=== PATIENT | female | born 1995 | race Caucasian/White ===

== ENCOUNTER 2020-11-18 13:54 | Observation (INO) | payer OTHER ==
[~2020-11-18] VITALS: Ht 172.7 cm; Wt 92.3 kg
[2020-11-18] VITALS (10 sets, daily range): BP systolic 116–137; BP diastolic 60–80
[2020-11-18] MEDS ORDERED: PRENTAB9 PO (14:40)
[2020-11-18] MEDS ORDERED: OMEP1CAP73 PO (14:44)
[2020-11-18] MEDS ORDERED: CYCL-707 PO (14:44)
[2020-11-18] MEDS ORDERED: ACET325C5 PO (14:48)
[2020-11-18] MEDS ORDERED: ACET25TA12 PO (14:50)
[2020-11-18] MEDS ORDERED: BUTORPHANOL 2 MG/ML INJ (J0595) IV ONE (15:00)
[2020-11-18] MEDS ORDERED: PROMETHAZINE INJ 25 MG/ML VIAL (J2550) IV ONE (15:00)
[2020-11-18] MEDS ORDERED: LR 1,000 ML IV ONE (15:00)
[2020-11-18 15:05] LABS: HEMATOCRIT 37.5 % (36.0-47.0); HEMOGLOBIN 12.8 g/dl (12.0-15.5); MEAN CORPUSCULAR HEMOGLOBIN 30.6 pg (27.0-33.0); MEAN CORPUSCULAR HGB CONC 34.1 g/dl (32.0-36.5); MEAN CORPUSCULAR VOLUME 89.7 fl (80.0-96.0); PLATELET COUNT, AUTOMATED 235 10^3/uL (150-450); RED BLOOD COUNT 4.18 10^6/uL (4.00-5.40); WHITE BLOOD COUNT 14.1 10^3/uL (4.0-10.0)
[2020-11-18 15:41] LABS: APPEARANCE, URINE CLEAR (CLEAR); BACTERIA, URINE AUTO 1+ (NEGATIVE); BILIRUBIN, URINE AUTO NEGATIVE (NEGATIVE); BLOOD, URINE BLOOD 1+ (NEGATIVE); COLOR, URINE YELLOW (YELLOW); GLUCOSE, URINE (UA) AUTO NEGATIVE (NEGATIVE); KETONE, URINE AUTO 1+ mg/dL (NEGATIVE); LEUKOCYTE ESTERASE, URINE AUTO 2+ (NEGATIVE); NITRITE, URINE AUTO NEGATIVE (NEGATIVE); PROTEIN, URINE AUTO NEGATIVE (NEGATIVE); RBC, URINE AUTO 1 /HPF (0-3); SPECIFIC GRAVITY URINE AUTO 1.008 (1.002-1.035); SQUAMOUS EPITHELIAL CELL UR AU 0 /HPF (0-6); UROBILINOGEN, URINE AUTO 0.2 mg/dL (0.0-2.0); WBC, URINE AUTO 3 /HPF (0-3)
[2020-11-18] MEDS: LR 1,000 ML IV SCH (16:09)
--- NOTE | 2020-11-18 16:40 | REP ---
INDICATION: severe right back pain with +CVAT, afebrile. COMPARISON: None. TECHNIQUE: Urinary tract sonography. FINDINGS: Scanning at the level of the urinary bladder shows no abnormality. Renal cortical echogenicity pattern is normal bilaterally and contours are smooth. There is no evidence of cyst, mass, or calculus in either kidney. The right kidney measures 15.0 x 7.5 x 5.8 cm. Left renal dimensions are 15.4 x 5.8 x 5.8 cm. There is moderate right sided hydronephrosis and hydroureter. No left-sided hydronephrosis seen. heart rate is recorded during the exam at 126 beats per minute in this patient with history 36 weeks gestation. IMPRESSION: Moderate right-sided hydronephrosis and hydroureter seen. No calculus is observed. No hydronephrosis on the left. Otherwise negative.. <Electronically signed by Cipriano Lazo > 11/18/20 [id number]
[2020-11-18] MEDS ORDERED: ACETAMINOPHEN 325 MG TAB PO ONE (19:00)
--- NOTE | 2020-11-18 19:01 | HPEPDOC ---
Obstetrical History & Physical General Date of Admission History of Present Illness C/o right side back pain starting at 0800, with irregular contractions Chief Complaint: Other Information Provided By: Patient Age: 25 : 1 Term: 0 Pre-term: 0 Abortions: 0 Livin Care Care: Good Care Dating Final EDC: Dec 12, 2020 Final EDC for Daily Update: Nov 11, 2020 Final EDC by: LMP LMP: March 07, 2020 EGA at Admission: 36 (+4) Antepartum Course Diagnos(e)s low lying placenta, anxiety, varicella NI Height (inches): 68 Pre- weight (lbs.): 185 Admission Weight (lbs.): 202 Change in Weight (lbs.): 17 Past Medical History Past Obstetrical History : Past Obstetrical History: Primgravida Complications: Yes (low lying placenta) 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 WELDER History: Abnormal Pap (ASCUS, HPV-) Past Medical History Medical History migraines, anxiety Surgical History: Denies/None Family History Significant Family History: Heart disease (father), Hypertension (mother, father) Social History Marital Status: Family situation: Spouse/partner home Psychosocial History: Anxiety * Smoker: non-smoker Alcohol: Denies Drugs: denies Abuse Violence Screening Have you been hit/kicked/slapp: No Have you been sexually assault: No Imunizations Tdap status: current Influenza Status: current Allergies Coded Allergies: No Known Allergies (Unverified , 11/18/20) Medications Scheduled Omeprazole (Omeprazole) 20 Mg Capsule.dr, 1 CAP PO DAILY No.137/Iron/Folic Acd ( Vitamin Tablet) 1 Each Tablet, 1 TAB PO DAILY Scheduled PRN Acetaminophen (Tylenol) 325 Mg Capsule, 325 MG PO Q6HP PRN for DISCOMFORT Acetaminophen/Diphenhydramine (Acetaminophen Pm Caplet) 1 Each Tablet, 1 TAB PO QHSP PRN for SLEEP Cyclobenzaprine HCl (Cyclobenzaprine HCl) 10 Mg Tablet, 1 TAB PO TIDP PRN for DISCOMFORT Physical Examination Physical Examination GENERAL: Alert and oriented times three. BREAST: . ABDOMEN: Gravid and non-tender to touch. FETUS: Is vertex (VTX) by sterile vaginal examination (SVE), fetus is vertex (VTX) by Dennis. HEART RATE: Regular rate and rhythm. LUNGS: Clear to auscultation (CTA). EXTREMITIES: No edema. No clonus. +CVAT, afrebrile, renal U/S indicates right hydronephrosis Vital Signs/I&O Vital Signs Date Time Temp Pulse Resp B/P (MAP) Pulse Ox O2 Delivery O2 Flow Rate FiO2 11/18/20 17:51 77 20 133/77 (95) 11/18/20 17:46 98.3 11/18/20 14:17 98 Room Air Laboratory Data 24H LABS Laboratory Tests 2 11/18/20 14:50: Nucleated Red Blood Cells % (auto) 0.0 11/18/20 15:28: Urine Color YELLOW, Urine Appearance CLEAR, Urine pH 7.0, Urine Specific [place] 1.008, Urine Protein NEGATIVE, Urine Glucose (Auto)(UA) NEGATIVE, Urine Ketones (Auto) 1+H, Urine Blood 1+H, Urine Nitrite NEGATIVE, Urine Bilirubin NEGATIVE, Urine Urobilinogen 0.2, Urine Leukocyte Esterase (Auto) 2+H, Urine WBC (Auto) 3, Urine RBC (Auto) 1, Urine Hyaline Casts (Auto) 0, Urine Bacteria (Auto) 1+H, Urine Squamous Epithelial Cells 0, Urine Sperm (Auto) CBC/BMP Laboratory Tests 11/18/20 14:50 Pertinent Laboratoy Data Blood Type: A+ RBC Antibody Screen: Negative HIV: Negative Hepatitis B: Negative Rapid Plasma Reagin: Nonreactive Rubella: Immune Varicella: Nonreactive Chlamydia/Gonorrhea: Negative Group B Streptococcus: Negative Quad Screen Test: Negative Cystic Fibrosis: Negative Anatomy Ultrasound Placenta Location: Posterior (lowlying) Normal Anatomy: Yes Placenta Previa: No (low lying 1.63 cm a 32wks gestation) Steroid Therapy Steroid Therapy: No Vaginal Examination Dilation: 1cm Station: -3 Cervical Position: Posterior Presentation: Cephalic presentation Assessment Variability: Moderate Accelerations: Positive Decelerations: None Tocometer Contractions: Yes Frequency: irregular Duration: less than 60 seconds Strength: palpated as mild, resting tone palp/soft Multi-drug resistant Organism: No history of MDRO Assessment/Plan Assessment Edyta is a 25-year-old (G)1 para (P)0 at 36+4 weeks by 11+0-week ultrasound. Presents to Labor and Delivery (L&D) for c/o right back pain. Plan Admit and orient. Diet: regular as tolerated. Group B Streptococcus (GBS) [negative]. Labs and intravenous (IV) per unit protocol. Counseled on pain management and NST q shift. Lactated Ringers (LR): Bolus 1000 mL, then at 125 mL/hr. stadol, tylenol ordered prn pain phenergan prn nausea flomax q day Monitor for change in status LO CORMIER CNM Nov 18, 2020 19:01
[2020-11-18] MEDS: BUTORPHANOL 2 MG/ML INJ (J0595) IV PRN ×2 (19:28→23:30)
[2020-11-18] MEDS: TAMSULOSIN 0.4 MG CAP PO SCH (20:57)
[2020-11-18] MEDS: PROMETHAZINE INJ 25 MG/ML VIAL (J2550) IV PRN (22:58)
[2020-11-19] VITALS (21 sets, daily range): BP systolic 104–141; BP diastolic 56–82
[2020-11-19] MEDS: LR 1,000 ML IV SCH ×3 (03:24→13:35)
[2020-11-19] MEDS: BUTORPHANOL 2 MG/ML INJ (J0595) IV PRN ×3 (03:31→12:41)
[2020-11-19] MEDS ORDERED: ONDANSETRON 4MG/2ML VIAL IV ONE (04:15)
[2020-11-19 05:59] LABS: HEMATOCRIT 36.6 % (36.0-47.0); HEMOGLOBIN 12.2 g/dl (12.0-15.5); MEAN CORPUSCULAR HEMOGLOBIN 30.6 pg (27.0-33.0); MEAN CORPUSCULAR HGB CONC 33.3 g/dl (32.0-36.5); MEAN CORPUSCULAR VOLUME 91.7 fl (80.0-96.0); PLATELET COUNT, AUTOMATED 275 10^3/uL (150-450); RED BLOOD COUNT 3.99 10^6/uL (4.00-5.40); WHITE BLOOD COUNT 18.1 10^3/uL (4.0-10.0)
[2020-11-19 06:09] LABS: INR 1.04; PROTHROMBIN TIME 13.8 SECONDS (12.5-14.3)
[2020-11-19 06:10] LABS: PARTIAL THROMBOPLASTIN TIME 28.7 SECONDS (24.2-38.5)
--- NOTE | 2020-11-19 06:22 | REPVR ---
PROCEDURE INFORMATION: Exam: US , Limited Exam date and time: 11/19/2020 5:44 AM Age: 25 years old Clinical indication: Lmp or gestational age (in weeks): 36w 5d; Other: Low lying placenta on prior ultrasounds; ; Additional info: Placental location TECHNIQUE: Imaging protocol: Real-time ultrasound of the maternal uterus with image documentation. Exam focused on the clinical indication. COMPARISON: RENAL US 11/18/2020 5:21 PM FINDINGS: Gestation: Single live IUP is seen . heart rate: heart rate is detected at 142 beats per minutes. Presentation: Cephalic presentation is noted. Placenta: Posterior grade 2 placenta is noted with no retroplacental hemorrhage or abruption. The placenta is approximately 2.6 cm distant from the internal os. Amniotic fluid index: The amniotic fluid index is within normal limits at 15.4 cm. ANATOMICAL SURVEY: anatomy: Limited evaluation of the abdominal wall, stomach, right and left kidneys and urinary bladder appear unremarkable. DOPPLER: Umbilical artery Doppler: Low resistance flow seen in the umbilical artery with peak systolic velocity of 58.9 centimeter/second, SD ratio of 2 and resistive index of 0.49. MATERNAL: Cervix: The cervix is normal length measuring 3.9 cm. The endocervical canal is closed. There is no funneling. IMPRESSION: 1. No sonographic evidence of placenta previa. 2. Normal length cervix with closed endocervical canal and no evidence of funneling. Electronically signed by: Eric Mccartney On 11/19/2020 06:22:00 AM
[2020-11-19 06:27] LABS: ALBUMIN 2.7 GM/DL (3.2-5.2); ALT/SGPT 10 U/L (12-78); BILIRUBIN,TOTAL 0.5 MG/DL (0.2-1.0); BLOOD UREA NITROGEN 5 MG/DL (7-18); CALCIUM LEVEL 8.8 MG/DL (8.5-10.1); CARBON DIOXIDE LEVEL 24 MEQ/L (21-32); CHLORIDE LEVEL 106 MEQ/L (98-107); CREATININE FOR GFR 0.71 MG/DL (0.55-1.30); GLOMERULAR FILTRATION RATE > 60.0 (>60); GLUCOSE, FASTING 86 MG/DL (70-100); POTASSIUM SERUM 3.9 MEQ/L (3.5-5.1); SODIUM LEVEL 139 MEQ/L (136-145); TOTAL PROTEIN 6.6 GM/DL (6.4-8.2)
[2020-11-19] MEDS: PROMETHAZINE INJ 25 MG/ML VIAL (J2550) IV PRN ×2 (06:33→13:30)
[2020-11-19] MEDS: TAMSULOSIN 0.4 MG CAP PO SCH (08:26)
[2020-11-19] MEDS: cefTRIAXone SOD 1 GM in D5W MINI-BAG PLUS 50 ML IV SCH (09:24)
--- NOTE | 2020-11-19 09:41 | IPNPDOC ---
Text Note Date of Service The patient was seen on 11/19/20. NOTE Patient seen and examined this AM. Edyta is a 25 yo at 36+5 weeks gestation who was admitted yesterday afternoon for severe right flank pain radiating to the groin with concern of nephrolithiasis vs pyelonephritis. She described a 12 hour history of severe back pain (especially on the right side) radiating to the groin on that same side. She also endorsed intermittent contractions. She denied any fevers or vomiting. Admission CBC was notable for WBC of ~14. UA was notable for a 2+ leuk est, 1+ blood, negative nitrite, 1+ bacteria. This morning, CMP and coags were unremarkable, to include a fibrinogen level >500. Repeat CBC demonstrated stable H/H and WBC of 18. She had a formal US earlier this morning which revealed a normal REMA and no sonographic evidence of placental abruption. Internal cervical os appeared closed. Placenta was known to be low-lying, however this AMs US demonstrated the placental tip being 2.6cm away from the cervical os. Due to her severe pain, she has been receiving 2mg stadol Q4H along with tylenol. This morning she reports continued pain, especially in the lower back on the right side. She denies any severe abdominal pain. However she does endorse some contraction pain. She had an episode of emesis last night, though this may have been due to the IV stadol. She endorses feeling hungry. Chaperoned by RN Vitals - VSS, afebrile (tmax 99.7 on skin scan, however repeat PO temp was 97.4 shortly thereafter), non tachycardic, normotensive General - Sitting up in bed, NAD Abdomen - Gravid uterus. No fundal tenderness whatsoever. Back - Tenderness to palpation at CVA on right side. Also tenderness to palpation in middle of lower back at lumbosacral junction. Pain somewhat able to be distractable. Cervix - 50/-4. Posterior. Unchanged from admission exam yesterday FHR tracing - Cat I throughout stay with moderate variability, +accels, no decels. Ctx irregular, but at times Q3-6 minutes Labs: Laboratory Tests 11/18/20 14:50 11/19/20 05:44 11/18/20 14:50: White Blood Count 14.1H, Red Blood Count 4.18, Hemoglobin 12.8, Hematocrit 37.5, Mean Corpuscular Volume 89.7, Mean Corpuscular Hemoglobin 30.6, Mean Corpuscular Hemoglobin Concent 34.1, Red Cell Distribution Width 13.2, Platelet Count 235, Nucleated Red Blood Cells % (auto) 0.0, Syphilis Serology [Pending] 11/18/20 15:28: Urine Color YELLOW, Urine Appearance CLEAR, Urine pH 7.0, Urine Specific [place] 1.008, Urine Protein NEGATIVE, Urine Glucose (Auto)(UA) NEGATIVE, Urine Ketones (Auto) 1+H, Urine Blood 1+H, Urine Nitrite NEGATIVE, Urine Bilirubin NEGATIVE, Urine Urobilinogen 0.2, Urine Leukocyte Esterase (Auto) 2+H, Urine WBC (Auto) 3, Urine RBC (Auto) 1, Urine Hyaline Casts (Auto) 0, Urine Bacteria (Auto) 1+H, Urine Squamous Epithelial Cells 0, Urine Sperm (Auto) 11/18/20 19:09: Serology Scanned Report Hepatitis B Testing 11/19/20 05:44: White Blood Count 18.1H, Red Blood Count 3.99L, Hemoglobin 12.2, Hematocrit 36.6, Mean Corpuscular Volume 91.7, Mean Corpuscular Hemoglobin 30.6, Mean Corpuscular Hemoglobin Concent 33.3, Red Cell Distribution Width 13.2, Platelet Count 275, Nucleated Red Blood Cells % (auto) 0.0, Prothrombin Time 13.8, Prothromb Time International Ratio 1.04, Activated Partial Thromboplast Time 28.7, Fibrinogen 534H, Sodium Level 139, Potassium Level 3.9, Chloride Level 106, Carbon Dioxide Level 24, Anion Gap 9, Blood Urea Nitrogen 5L, Creatinine 0.71, Glomerular Filtration Rate > 60.0, Fasting Glucose 86, Calcium Level 8.8, Total Bilirubin 0.5, Aspartate Amino Transf (AST/SGOT) 9, Alanine Aminotransferase (ALT/SGPT) 10L, Alkaline Phosphatase 140H, Total Protein 6.6, Albumin 2.7L, Albumin/Globulin Ratio 0.7L Rads: [id number] Renal US - Moderate right sided hydronephrosis. No evidence of calculus. [id number] Obstetric US: FINDINGS: Gestation: Single live IUP is seen . heart rate: heart rate is detected at 142 beats per minutes. Presentation: Cephalic presentation is noted. Placenta: Posterior grade 2 placenta is noted with no retroplacental hemorrhage or abruption. The placenta is approximately 2.6 cm distant from the internal os. Amniotic fluid index: The amniotic fluid index is within normal limits at 15.4 cm. ANATOMICAL SURVEY: anatomy: Limited evaluation of the abdominal wall, stomach, right and left kidneys and urinary bladder appear unremarkable. DOPPLER: Umbilical artery Doppler: Low resistance flow seen in the umbilical artery with peak systolic velocity of 58.9 centimeter/second, SD ratio of 2 and resistive index of 0.49. MATERNAL: Cervix: The cervix is normal length measuring 3.9 cm. The endocervical canal is closed. There is no funneling. IMPRESSION: 1. No sonographic evidence of placenta previa. 2. Normal length cervix with closed endocervical canal and no evidence of funneling. A/P: 25 yo at 36+5 weeks gestation with severe right sided back pain ra diating to the groin. -Nephrolithiasis vs pyelonephritis remain highest on the differential. No yuval dence of intra-amniotic infection. Low suspicion of labor given unchanged cervix. No examination findings, lab tests, or ultrasonographic evidence of placental abruption. -Will add rocephin 1gm Q24H for empiric treatment of potential pyelonephritis. Urine culture sent. Flomax previously added in hopes of facilitating passage of potential stones. -We discussed her placenta location. Some authors don't even consider a placenta to be low lying if it is >2cm from the cervical os. Morbidity of low lying placenta appears to increase once placental edge is <2cm from the os, and increases sharply if placental edge is <1cm away. At this time, there is no absolute contraindication to vaginal delivery with a placenta 2.6cm from the cervical os. -Continue stadol for pain control as needed along with tylenol. Unable to give toradol at this gestational age. -Will write for flexeril for potential MSK component of pain. -Continue regular diet. -Antiemetics as written. -Move towards delivery for usual /maternal indications. No indication for delivery at this time. -All patient questions answered. Jimi Easley, VS,Sunita, I+O VS, Sunita, I+O Laboratory Tests 11/18/20 14:50 11/19/20 05:44 Vital Signs Date Time Temp Pulse Resp B/P (MAP) Pulse Ox O2 Delivery O2 Flow Rate FiO2 11/19/20 08:17 97.4 11/19/20 07:58 20 11/19/20 07:25 85 136/70 (92) 100 Room Air I&O- Last 24 Hours up to 6 AM 11/19/20 06:00 Intake Total 3193 ml Output Total 2010 ml Balance 1183 ml JIMI EASLEY DO Nov 19, 2020 09:41
[2020-11-19] MEDS: CYCLOBENZAPRINE 10MG TABLET PO PRN (09:50)
[2020-11-19] MEDS: PERCOCET 5MG/325MG TAB PO PRN ×2 (16:02→23:44)
[2020-11-19] MEDS ORDERED: BUTORPHANOL 2 MG/ML INJ (J0595) IV ONE (17:45)
[2020-11-19] MEDS: METOCLOPRAMIDE INJ 10MG/2ML VIAL (J2765 PER 1) IV PRN (18:05)
[2020-11-19] MEDS: ONDANSETRON 4MG/2ML VIAL IV PRN (23:40)
[2020-11-20] VITALS (8 sets, daily range): BP systolic 109–127; BP diastolic 57–77
[2020-11-20] MEDS ORDERED: BUTORPHANOL 2 MG/ML INJ (J0595) IV ONE (00:15)
[2020-11-20] MEDS: LR 1,000 ML IV SCH ×4 (01:32→17:49)
[2020-11-20] MEDS: METOCLOPRAMIDE INJ 10MG/2ML VIAL (J2765 PER 1) IV PRN (02:26)
[2020-11-20] MEDS: PERCOCET 5MG/325MG TAB PO PRN ×3 (04:03→13:54)
[2020-11-20] MEDS: ONDANSETRON 4MG/2ML VIAL IV PRN ×2 (06:17→17:45)
[2020-11-20 07:09] LABS: HEMATOCRIT 33.1 % (36.0-47.0); HEMOGLOBIN 10.8 g/dl (12.0-15.5); MEAN CORPUSCULAR HEMOGLOBIN 29.8 pg (27.0-33.0); MEAN CORPUSCULAR HGB CONC 32.6 g/dl (32.0-36.5); MEAN CORPUSCULAR VOLUME 91.2 fl (80.0-96.0); PLATELET COUNT, AUTOMATED 254 10^3/uL (150-450); RED BLOOD COUNT 3.63 10^6/uL (4.00-5.40); WHITE BLOOD COUNT 17.5 10^3/uL (4.0-10.0)
[2020-11-20] MEDS: TAMSULOSIN 0.4 MG CAP PO SCH (08:17)
[2020-11-20] MEDS: cefTRIAXone SOD 1 GM in D5W MINI-BAG PLUS 50 ML IV SCH (08:20)
[2020-11-20] MEDS ORDERED: SLF 3 ML SYR IV PRN (08:30)
[2020-11-20] MEDS: OMEPRAZOLE 20 MG CAP PO SCH (12:02)
[2020-11-20] MEDS: CYCLOBENZAPRINE 10MG TABLET PO PRN (12:29)
[2020-11-20] MEDS: SLF 3 ML SYR IV SCH ×2 (13:55→21:27)
[2020-11-20] MEDS ORDERED: CYCLOBENZAPRINE 10MG TABLET PO SCH (16:00)
[2020-11-20] MEDS ORDERED: diphenhydrAMINE 50MG/ML VIAL (J1200) IV ONE ×2 (17:15→21:00)
--- NOTE | 2020-11-20 17:43 | IPNPDOC ---
Subjective Date Seen The patient was seen on 11/20/20. Subjective Chief Complaint/HPI Edyta is a 25 yo at 36+6 weeks gestation who was admitted 2 days ago for severe right flank pain radiating to the groin with concern of nephrolithiasis vs pyelonephritis. she is now on Rocephin, Flomax and Percocet for pain as well as reglan and phenergan for nausea. patient continues to endorse right flank/CVA pain. This afternoon i saw her at bedside sitting up on the side of the pain. she was c/o nausea and was asking for nausea made. when asked about pain she reports that she continues to have it, but knows that it not time for her next dose. clinically she seems to be comfortable with some occasional bouts of back pain with movements. she is tolerated Water intake, but has not eaten any solid food today. she feels hungry, but is afraid to eat due to nausea. she is on NST BID and it was reactive this morning on L&D before she was transfered to maternity fang. she denies any fevers or chills. she is voiding without issues. denies any contraction pain for me this afternoon. . Chaperoned by RN Vitals - VSS, afebrile, non tachycardic, normotensive General - Sitting up in bed, NAD Abdomen - Gravid uterus. No fundal tenderness whatsoever. Back - Tenderness to palpation at CVA on right side with back muscles grasped in my fingers- she also jumps of the bed. A/P Seems to be stable on current treatment plan. patient reports she takes Tylenol PM- so will order Benadryl 25mg to take before bed. - get NST Tonight -continue rocephin at least for a total of 24 hrs. patient has remained afibrile -IF no improvement, consider IOL at 37 weeks. there is no room on L&D for tomorrow, if still uncontrolled pain can induce on friday- for uncontrolled Nephrolithisis pain -continue reg diet as tolerated and nause meds as needed Assessment /Plan Plan/VTE VTE Prophylaxis Ordered?: Yes VS, I&O, 24H, Fishbone Vital Signs/I&O Vital Signs Date Time Temp Pulse Resp B/P (MAP) Pulse Ox O2 Delivery O2 Flow Rate FiO2 11/20/20 14:25 18 11/20/20 14:00 97.8 81 124/77 (93) 99 11/20/20 13:54 Room Air I&O- Last 24 Hours up to 6 AM 11/20/20 06:00 Intake Total 3350 ml Output Total 1376 ml Balance 1974 ml Laboratory Data 24H LABS Laboratory Tests 2 11/20/20 07:00: Nucleated Red Blood Cells % (auto) 0.0 CBC/BMP Laboratory Tests 11/20/20 07:00 Microbiology Microbiology 11/19/20 Urine Culture, Received Pending LILA OZUNA MD Nov 20, 2020 17:43
[2020-11-20] MEDS: CYCLOBENZAPRINE 10MG TABLET PO SCH (21:20)
[2020-11-21] MEDS: PERCOCET 5MG/325MG TAB PO PRN (00:29)
[2020-11-21] MEDS: CYCLOBENZAPRINE 10MG TABLET PO SCH (04:56)
[2020-11-21] MEDS: SLF 3 ML SYR IV SCH (04:57)
[2020-11-21 06:00] VITALS: BP 124/64
--- NOTE | 2020-11-21 06:07 | IPNPDOC ---
Subjective Date Seen The patient was seen on 11/21/20. Subjective Chief Complaint/HPI Edyta is a 25 yo at 37+0 weeks gestation who was admitted 3 days ago for severe right flank pain radiating to the groin with concern of nephrolithiasis vs pyelonephritis. she is now on Rocephin, Flomax and Percocet, flexeril for pain as well as reglan and phenergan for nausea. she also had benadryl before bed for sleep. patient continues to endorse right flank/CVA pain with movement, but when she is not moving she currently report no pain. This am she was seen and examined at bedside. she currently has no pain. she is feeling hugry. she had a light dinner last night and was able to tolerated it. she is voiding without issues, reports urine is very dark. she notes that her feet are more swollen- but denies any headaches, vision changes, RUQ pain. she never had a fever since admission. she denies any contractions, vaginal bleedi ng, decreased movements or loss of fluids. she is on NST BID and it was reactive last night at 9 pm. . Chaperoned by URSULA Vitals - VSS, afebrile, non tachycardic, normotensive General - Sitting up in bed, NAD Abdomen - Gravid uterus. No fundal tenderness whatsoever. Back - not performed as patient did not want to move afraid she would cause pain Ext; Edema to the lower Extermity. negative cynthia sign A/P Edyta is a 25 yo at 37+0 weeks gestation who was admitted 3 days ago for severe right flank pain radiating to the groin with concern of nephrolithiasis vs pyelonephritis. has now received over 48hrs of rocephin and has been afibrile since admission. pain getting better??. Urine culture still pending -Will transition to oral antibiotics this morning to take until delivery- 500mg PO Q12HRS FOR 7 DAYS, Then 500mg daily until delivery -Seems to be stable on current pain treatment plan. . - get NST this morning ( BID NST) -continue reg diet as tolerated and nause meds as needed -If continues to improve can potentially discharge home tomorrow and induce at 39-40 weeks Assessment /Plan Plan/VTE VTE Prophylaxis Ordered?: Yes VS, I&O, 24H, Sunita De Anda Signs/I&O Vital Signs Date Time Temp Pulse Resp B/P (MAP) Pulse Ox O2 Delivery O2 Flow Rate FiO2 11/21/20 01:30 14 11/20/20 22:00 98.8 95 125/68 (87) 98 Room Air I&O- Last 24 Hours up to 6 AM 11/21/20 06:00 Intake Total 1495 ml Output Total 1225 ml Balance 270 ml Laboratory Data 24H LABS Laboratory Tests 2 11/20/20 07:00: Nucleated Red Blood Cells % (auto) 0.0 CBC/BMP Laboratory Tests 11/20/20 07:00 Microbiology Microbiology 11/19/20 Urine Culture, Received Pending LILA OZUNA MD Nov 21, 2020 06:07
[2020-11-21] MEDS ORDERED: CEPHALEXIN 500 MG CAP PO SCH (09:00)
[2020-11-21] MEDS: TAMSULOSIN 0.4 MG CAP PO SCH (09:06)
[2020-11-21] MEDS: OMEPRAZOLE 20 MG CAP PO SCH (09:06)
--- NOTE | 2020-11-21 12:15 | IPNPDOC ---
Text Note Date of Service The patient was seen on 11/21/20. NOTE 11/21/20 1130 AM . PATIENT REQUESTING DISCHARGE FEELING BETTER . PAIN RESOLVING OCCASIONAL CONTRACTIONS NO VAGINAL BLEEDING OR DISCHARGE . 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 KEEP APPOINTMENT FT DRUM OB POSSIBLE IOL AT 39 WEEKS. HISTORY PER RECORD IS 25 YO. AT 36.4 WEEKS 12 HOURS RIGHT FLANK PAIN WITH IRREGULAR CONTRACTIONS.OTHER ISSUES GERD, ASCUS PAP RESOLVED LOW LYING PLACENTA. WORKING DIAGNOSIS IS PYELONEPHRITIS VERSUS K STONE . US NEGATIVE PLACENTA 2.6 CM FROM OS URINE CULTURE NEGATIVE PATIENT GBS NEGATIVE CATEGORY 1 STRIP CERVIX 1-50- -4 . EXPRESSED UNDERSTANDING DISCHARGED UNDELIVERED . 30 MINUTE DISCUSSION WITH EXAMINATION INDICATION: severe right back pain with +CVAT, afebrile. COMPARISON: None. TECHNIQUE: Urinary tract sonography. FINDINGS: Scanning at the level of the urinary bladder shows no abnormality. Renal cortical echogenicity pattern is normal bilaterally and contours are smooth. There is no evidence of cyst, mass, or calculus in either kidney. The right kidney measures 15.0 x 7.5 x 5.8 cm. Left renal dimensions are 15.4 x 5.8 x 5.8 cm. There is moderate right sided hydronephrosis and hydroureter. No left-sided hydronephrosis seen. heart rate is recorded during the exam at 126 beats per minute in this patient with history 36 weeks gestation. IMPRESSION: Moderate right-sided hydronephrosis and hydroureter seen. No calculus is ob served. No hydronephrosis on the left. Otherwise negative.. <Electronically signed by Cipriano Lazo > 11/18/20 1636 DD: Aleksey Lazo MD 11/18/20 1634 DT: ALEXSANDER 11/18/20 1636 DS: JOSE 11/18/20 1634 11/18/20 1634INDICATION: severe right back pain with +CVAT, afebrile. COMPARISON: None. TECHNIQUE: Urinary tract sonography. FINDINGS: Scanning at the level of the urinary bladder shows no abnormality. Renal cortical echogenicity pattern is normal bilaterally and contours are smooth. There is no evidence of cyst, mass, or calculus in either kidney. The right kidney measures 15.0 x 7.5 x 5.8 cm. Left renal dimensions are 15.4 x 5.8 x 5.8 cm. There is moderate right sided hydronephrosis and hydroureter. No left-sided hydronephrosis seen. heart rate is recorded during the exam at 126 beats per minute in this patient with history 36 weeks gestation. IMPRESSION: Moderate right-sided hydronephrosis and hydroureter seen. No calculus is observed. No hydronephrosis on the left. Otherwise negative.. <Electronically signed by Cipriano Lazo > 11/18/20 1636 DD: Aleksey Lazo MD 11/18/20 1634 DT: ALEXSANDER 11/18/20 1636 DS: JOSE 11/18/20 1634 11/18/20 1634 Vital Signs Label Value Date Time Patient Temperature 98.9 degrees F 11/21/20 06 Temperature Source Temporal 11/21/20 06 Pulse 92 11/21/20 06 Respiratory Rate 18 bpm 11/21/20 0600 Blood Pressure Assessment 124/64 (84) 11/21/20 0600 Source Automatic Cuff (NIBP) Bedside Pulse Oximetry 97 % 11/21/20 0600 Item Value Date Time Oxygen Delivery Method Room Air 11/21/20 0600 Urine Color YELLOW 11/18/20 1528 Urine Appearance CLEAR 11/18/20 1528 Urine pH 7.0 UNITS 11/18/20 1528 Urine Specific [place] 1.008 11/18/20 1528 Urine Protein NEGATIVE mg/dL 11/18/20 1528 Urine Glucose (Auto)(UA) NEGATIVE mg/dL 11/18/20 1528 Urine Ketones (Auto) 1+ mg/dL H 11/18/20 1528 Urine Blood 1+ H 11/18/20 1528 Urine Bilirubin NEGATIVE 11/18/20 1528 Urine Nitrite NEGATIVE 11/18/20 1528 Urine Urobilinogen 0.2 mg/dL 11/18/20 1528 Urine Leukocyte Esterase (Auto) 2+ H 11/18/20 1528 Urine WBC (Auto) 3 /HPF 11/18/20 1528 Urine RBC (Auto) 1 /HPF 11/18/20 1528 Urine Hyaline Casts (Auto) 0 /LPF 11/18/20 1528 Urine Bacteria (Auto) 1+ H 11/18/20 1528 Urine Squamous Epithelial Cells 0 /HPF 11/18/20 1528 Sodium Level 139 MEQ/L 11/19/20 0544 Potassium Level 3.9 MEQ/L 11/19/20 0544 Chloride Level 106 MEQ/L 11/19/20 0544 Carbon Dioxide Level 24 MEQ/L 11/19/20 05 Anion Gap 9 MEQ/L 11/19/20 05 Blood Urea Nitrogen 5 MG/DL L 11/19/20 0544 Creatinine 0.71 MG/DL 11/19/20 05 Glomerular Filtration Rate > 60.0 11/19/20 05 Fasting Glucose 86 MG/DL 11/19/20 0544 Calcium Level 8.8 MG/DL 11/19/20 0544 Total Bilirubin 0.5 MG/DL 11/19/20 05 Aspartate Amino Transf (AST/SGOT) 9 U/L 11/19/20 05 Alanine Aminotransferase (ALT/SGPT) 10 U/L L 11/19/20543 Alkaline Phosphatase 140 U/L H 11/19/20 05 Total Protein 6.6 GM/DL 11/19/20 05 Albumin 2.7 GM/DL L 11/19/20 05 Albumin/Globulin Ratio 0.7 L 11/19/20543 VS,Fishbone, I+O VS, Fishbone, I+O Admission diagnosis: .K STONE Discharge diagnosis: RIGHT FLANK PAIN Condition at Discharge: STABLE Discharge Instructions: [Home/other] PRECAUTIONS GIVEN Activity: TOLLERATED Diet: ANDRIY Medications: PRESCRIBED Follow-up: OFFICE 1 WEEK Other: IOL AT 39 WEEKS Vital Signs PATIENT: KATELYN MCKEON LOC: M OBS U #: [id number] AGE/SX: 25/F [place]OM[place] [facility] [place]11/18/[address]: LO CORMIER : 1995 BED: 01 DIS: STATUS: ADM IN TLOC: SPEC #: [id number] SAMY: 11/19/20 STATUS: COMP REQ #: [id number] RECD: 11/20/[address] [facility] [address]: DENISE LUTZ DO SOURCE: URINE CC ENTR: 11/19/[address] [facility] [address]: LO CORMIER Kylah SPDESC: COMP: 11/21/20 [facility] ORDERED: URINE CULT COMMENTS: Urine Culture Indication ACT WKST: NEW 11/21/20 #1 ------ ------ Procedure Result Site DEPARTMENT OF MICROBIOLOGY ROUTINE CULTURE RESULTS URINE CULTURE Final FULL REPORT IN LAB NOTES (eCW and [facility]). NO GROWTH CLINICAL SIGNIFICANCE 2 OR MORE ORGANISMS Date Time Temp Pulse Resp B/P (MAP) Pulse Ox O2 Delivery O2 Flow Rate FiO2 11/21/20 06:00 98.9 92 18 124/64 (84) 97 Room Air I&O- Last 24 Hours up to 6 AM 11/21/20 06:00 Intake Total 1495 ml Output Total 1225 ml Balance 270 ml [facility] NAME: KATELYN MCKEON DATE OF : 1995 BUSINESS NUMBER: [id number] AGE: 25 SEX: F REPORT #: [id number] ROOM: [facility] TECHNOLOGIST: [facility] DOCTOR: DENISE LUTZ DO Ordered for Date&Time: 11/19/20 0544 cc: [~ rep ct ivnm] Service Date&Time: This report is in Signed status. Interpretation performed by [facility]. Thank you for having your radiology procedures performed at [facility] RADIOLOGY REPORT Date&Time printed: [~ rep prt dt last] [~ rep prt tm last] Page 2 of 2 [place] [id number] RADIOLOGY REPORT This report is in Signed status. Interpretation performed by [facility]. Thank you for having your radiology procedures performed at [facility] RADIOLOGY REPORT Date&Time printed: [~ rep prt dt last] [~ rep prt tm last] Page 1 of 2 PROCEDURE INFORMATION: Exam: US , Limited Exam date and time: 11/19/2020 5:44 AM Age: 25 years old Clinical indication: Lmp or gestational age (in weeks): 36w 5d; Other: Low lying placenta on prior ultrasounds; ; Additional info: Placental location TECHNIQUE: Imaging protocol: Real-time ultrasound of the maternal uterus with image documentation. Exam focused on the clinical indication. COMPARISON: RENAL US 11/18/2020 5:21 PM FINDINGS: Gestation: Single live IUP is seen . heart rate: heart rate is detected at 142 beats per minutes. Presentation: Cephalic presentation is noted. Placenta: Posterior grade 2 placenta is noted with no retroplacental hemorrhage or abruption. The placenta is approximately 2.6 cm distant from the internal os. Amniotic fluid index: The amniotic fluid index is within normal limits at 15.4 cm. ANATOMICAL SURVEY: anatomy: Limited evaluation of the abdominal wall, stomach, right and left kidneys and urinary bladder appear unremarkable. DOPPLER: Umbilical artery Doppler: Low resistance flow seen in the umbilical artery with peak systolic velocity of 58.9 centimeter/second, SD ratio of 2 and resistive index of 0.49. MATERNAL: Cervix: The cervix is normal length measuring 3.9 cm. The endocervical canal is closed. There is no funneling. IMPRESSION: 1. No sonographic evidence of placenta previa. 2. Normal length cervix with closed endocervical canal and no evidence of funneling. Electronically signed by: Idalmis Mccartney On 11/19/2020 06:22:00 AM DD: IDALMIS MCCARTNEY MD 11/19/20 0544 DT: JOAQUÍN 11/19/2022 DS: SANCHEZ 11/19/20 0622 [~ rep ct labl] Keaton Contreras MD Nov 21, 2020 11:48
[2020-11-21] MEDS ORDERED: CEPH500C PO (12:20)
[2020-11-21] MEDS ORDERED: FLOM0.4C39 PO (12:20)
[2020-11-21] MEDS ORDERED: OMEP-218 PO (12:20)
[2020-11-21] MEDS ORDERED: CYCL-707 PO (12:20)
[2020-11-22 05:30] VITALS: BP 133/65
[2020-11-22 06:00] VITALS: BP_SYST 130; BP_SYST 133; BP_DIAS 64; BP_DIAS 65
== END 2020-11-21 18:30 | disposition home or self-care (01) ==
LOC: M LDO 13:54 → M LDI 13:55 → UNDOADMOB 19:02 → INTOOBSV 19:02 → M LDI 19:02 → M OBS 11-20 10:35 → M LDI 11-20 10:35 → M OBS 11-20 10:35 → UNDODISOB 11-21 18:30
PROVIDERS: ADMIT Registered Nurse; ATTEND Registered Nurse
DX: O23.43 Unspecified infection of urinary tract in pregnancy, third trimester (principal); Z3A.36 36 weeks gestation of pregnancy
CPT/HCPCS: 36415; 59025; 76775; 76815; 76817; 76820; 80053; 81001; 85027; 85384; 85610; 85730; 86780; 86850; 86900; 86901; 86920; 87086; 96361; 96365; 96366; 96375; 96376; J0595; J0696; J1200; J2405; J2765

== ENCOUNTER 2020-11-25 18:34 | Outpatient (CLI) | payer OTHER ==
[~2020-11-25] VITALS: Ht 172.7 cm; Wt 96.5 kg
[~2020-11-25 18:34] MED LIST: ACET25TA12 PO; ACET325C5 PO; CEPH500C PO; CYCL-707 PO; FLOM0.4C39 PO; OMEP-218 PO; OMEP1CAP73 PO; PRENTAB9 PO
[2020-11-25 18:49] VITALS: BP 130/66
--- NOTE | 2020-11-25 20:28 | REPVR ---
PROCEDURE INFORMATION: Exam: US Biophysical Profile Without Non-Stress Test Exam date and time: 11/25/2020 8:02 PM Age: 25 years old Clinical indication: Other: Bpp placental location; ; Additional info: Need bpp and placental placement 37.2 weeks TECHNIQUE: Imaging protocol: US biophysical profile without non-stress testing. COMPARISON: Obs. Limited, REMA US 11/19/2020 5:10 AM FINDINGS: heart rate: heart rate 116 bpm. Presentation: Fetus in cephalic presentation. Placenta: No placenta previa. Amniotic fluid index: REMA 7.1, low normal. BIOPHYSICAL PROFILE: Breathin/2 Gross body movements: 2/2 tone: 2/2 Qualitative amniotic fluid: 2/2 Biophysical Profile Score: 8/8 MATERNAL ANATOMY: Cervix: Cervix measures 3.6 cm. IMPRESSION: Biophysical profile score is 8 out of 8. Electronically signed by: Zac Ceballos On 11/25/2020 20:28:02 PM
--- NOTE | 2020-11-25 21:45 | IPNPDOC ---
Text Note Date of Service The patient was seen on 11/25/20. NOTE 25 yo at 37+4 weeks gestation presents to L&D with the complaint of back pain, contractions, and possibly leaking fluid since about 1600 today. She denies any bleeding. She reports feeling her baby move but not as much as usual. She had an episode of discharge this afternoon and wasn't sure if she peed or its her water breaking. While in triage she felt movement and was reassured. Chaperoned by L&D RN Vitals - VSS, afebrile, normotensive, non tachycardic General - AAOX3, sitting up in bed, NAD Abdomen - Gravid uterus. No fundal tenderness. Pelvic - Normal external female genitalia. Speculum placed into the vagina. White discharge noted in the vault. Swabs obtained. No pooling of fluid. Negative leakage of fluid with valsalva. Speculum removed. Cervix 1/50/-4 to digital exam. Microscopy - Negative nitrazine, negative ferning. Formal OB US - 05/27 BPP, REMA 7.1cm. No placenta previa. Cervix >3.4cm. FHR tracing - Cat I with moderate variability, +accels, no decels No evidence of labor or ruptured membranes. Reassuring status. However, note made of borderline low REMA. Will bring patient back tomorrow for another NST and REMA. Patient to return to care sooner for bleeding, leakage of fluid, worsening pain, or decreased movement. All patient questions answered. 30 minutes of patient care DO DARLING Cantu Fishbone, I+O Sunita HASTINGS, I+O Vital Signs Date Time Temp Pulse Resp B/P (MAP) Pulse Ox O2 Delivery O2 Flow Rate FiO2 11/25/20 18:55 Room Air 11/25/20 18:49 98.1 78 20 130/66 (87) DENISE LUTZ DO Nov 25, 2020 21:45
== END 2020-11-25 21:20 | disposition home or self-care (01) ==
LOC: M LDO 18:34
PROVIDERS: ATTEND Obstetrics & Gynecology
DX: O26.893 Other specified pregnancy related conditions, third trimester (principal); Z3A.37 37 weeks gestation of pregnancy
CPT/HCPCS: 59025; 76815; 76817; 76819; G0378; G0463

== ENCOUNTER 2020-11-26 11:24 | Outpatient (CLI) | payer OTHER ==
[~2020-11-26] VITALS: Ht 172.7 cm; Wt 96.0 kg
[2020-11-26 12:08] VITALS: BP 129/74
--- NOTE | 2020-11-26 12:28 | REP ---
INDICATION: repeat REMA.. COMPARISON: 11/25/2020. TECHNIQUE: Real-time sonographic evaluation of gravid uterus performed. FINDINGS: There is a single living intrauterine gestation with an estimated gestational age reportedly 38 weeks 1 day EDC 12/09/2020. position is cephalic. Placenta is on the right and grade 3 with no previa or abruption. heart rate 150 beats per minute. Once again there appears to be mild oligohydramnios unchanged since the prior study. REMA is 7.0, previously 7.1. SD ratio umbilical artery 1.80 and RI 0.44. Cervical length 3.9 cm. IMPRESSION: Mild oligohydramnios unchanged. <Electronically signed by Lenin Holloway > 11/26/20 7380
--- NOTE | 2020-11-26 14:47 | IPNPDOC ---
Text Note Date of Service The patient was seen on 11/26/20. NOTE 25 yo at 37+5 weeks today presents to L&D for repeat REMA. Edyta had a borderline low REMA yesterday when she presented for a labor check. I assessed her for ruptured membranes which was negative. I directed her to return today for a repeat evaluation. Today Edyta is doing OK. She has continued back pain but nothing new. She denies any contractions or leakage of fluid. She endorses feeling movement. Chaperoned by RN General - AAOX3, sitting up in bed, NAD, pleasant and conversant Abdomen - Gravid uterus, no fundal tenderness. FHR tracing - Cat I with moderate variability, +accels, no decels. Tracing picked up maternal heart rate on a couple occasions when she sat up. Maternal HR was in the 90s. This was not a FHR deceleration. Formal US - REMA 7.0cm. Essentially unchanged from yesterday. REMA unchanged from yesterday, but borderline low. Will plan for IOL on at 38+2 weeks for borderline oligohydramnios. She has an appointment on Friday in the office. Will perform an NST and REMA at this appointment. Patient to return to care sooner for leakage of fluid, bleeding, contractions, or decreased movement. All patient questions answered. 30 minutes of patient care DO DARLING Cantu Fishbone, I+O Sunita HASTINGS, I+O Vital Signs Date Time Temp Pulse Resp B/P (MAP) Pulse Ox O2 Delivery O2 Flow Rate FiO2 11/26/20 12:08 97.8 80 18 129/74 (92) DENISE LUTZ DO Nov 26, 2020 14:47
== END 2020-11-26 14:20 | disposition home or self-care (01) ==
LOC: M LDO 11:24
PROVIDERS: ATTEND Obstetrics & Gynecology
DX: O41.03X0 Oligohydramnios, third trimester, not applicable or unspecified (principal); Z3A.37 37 weeks gestation of pregnancy
CPT/HCPCS: 59025; 76815; G0378; G0463

== ENCOUNTER 2020-11-30 13:50 | Inpatient (IN) | payer OTHER ==
[~2020-11-30] VITALS: Ht 172.7 cm; Wt 95.3 kg
[2020-11-30] VITALS (20 sets, daily range): BP systolic 109–145; BP diastolic 62–91
[2020-11-30] MEDS ORDERED: LACTATED RINGER'S 1000 ML IV STA (14:27)
[2020-11-30] MEDS ORDERED: OXYTOCIN DRIP 30 UNITS in IV 1 EA IV SCH (14:30)
--- NOTE | 2020-11-30 14:47 | HPEPDOC ---
Obstetrical History & Physical General Date of Admission Nov 30, 2020 at 13:50 History of Present Illness 25 yo at 38w2d with BETY of 12 DEC 2020 presents to L&D for IOL for oligohyd ramnios. She denies contractions, leaking of fluid, vaginal bleeding, and reports positive movement. 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 deficit disorder * Smoker: non-smoker Alcohol: Denies Drugs: denies Abuse Violence Screening Have you been hit/kicked/slapp: No Have you been sexually assault: No Imunizations Tdap status: current Influenza Status: current Allergies Coded Allergies: No Known Allergies (Unverified , 11/30/20) Medications Scheduled Cephalexin (Cephalexin) 500 Mg Capsule, 500 MG PO Q12H Cyclobenzaprine HCl (Cyclobenzaprine HCl) 10 Mg Tablet, 10 MG PO Q8H Omeprazole (Omeprazole) 20 Mg Capsule.dr, 1 CAP PO DAILY No.137/Iron/Folic Acd ( Vitamin Tablet) 1 Each Tablet, 1 TAB PO DAILY Tamsulosin HCl (Flomax) 0.4 Mg Capsule, 0.4 MG PO DAILY Scheduled PRN Acetaminophen/Diphenhydramine (Acetaminophen Pm Caplet) 1 Each Tablet, 1 TAB PO QHSP PRN for SLEEP Physical Examination Physical Examination GENERAL: Alert and oriented times three. BREAST: . ABDOMEN: Gravid and non-tender to touch. FETUS: Is vertex (VTX) by sterile vaginal examination (SVE), fetus is vertex (VTX) by Dennis. HEART RATE: Regular rate and rhythm. LUNGS: Clear to auscultation (CTA). EXTREMITIES: No edema. No clonus. Deep tendon reflexes (DTRs) + 2. Laboratory Data 24H LABS Laboratory Tests 2 11/30/20 13:54: Serology Scanned Report Hepatitis B Testing Pertinent Laboratoy Data Blood Type: A+ RBC Antibody Screen: Negative HIV: Negative Hepatitis B: Negative Rapid Plasma Reagin: Nonreactive Rubella: Immune Varicella: Nonreactive Chlamydia/Gonorrhea: Negative Group B Streptococcus: Negative Quad Screen Test: Negative Cystic Fibrosis: Negative Glucose Tolerance Test: 108 Vaginal Examination Dilation: 3 cm Effacement: 60% Station: -3 Cervical Consistency: Medium Cervical Position: Posterior Presentation: Cephalic presentation Position: Vertex (occiput) Assessment Heart Rate (FHR): 145 Variability: Moderate Accelerations: Present Tocometer Contractions: Yes Frequency: irregular Multi-drug resistant Organism: No history of MDRO Assessment/Plan Assessment 25 yo at 38w2d with BETY of 12 DEC 2020 presents to L&D for IOL for oligohydramnios. She denies contractions, leaking of fluid, vaginal bleeding, and reports positive movement. Plan Admit and orient. 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 Diet: clear liquids. Group B Streptococcus (GBS) negative. Labs and intravenous (IV) per unit protocol. Counseled on Pitocin and induction of labor (IOL). Lactated Ringers (LR): Bolus 1000 mL, then at 125 mL/hr. Anticipate normal spontaneous delivery (). C-S as appropriate. Labor and Delivery Counseling Discussed with her the labor process and IOL We discussed risks of section, PPH, and IOL methods. We discussed pain management methods All questions answered, her and her spouse have no further questions JOSE RAFAEL HARRISON CNM Nov 30, 2020 14:47
[2020-11-30] MEDS: LR 1,000 ML IV SCH (14:50)
[2020-11-30 15:01] LABS: HEMATOCRIT 36.1 % (36.0-47.0); HEMOGLOBIN 12.1 g/dl (12.0-15.5); MEAN CORPUSCULAR HGB CONC 33.5 g/dl (32.0-36.5); MEAN CORPUSCULAR VOLUME 89.4 fl (80.0-96.0); PLATELET COUNT, AUTOMATED 353 10^3/uL (150-450); RED BLOOD COUNT 4.04 10^6/uL (4.00-5.40); WHITE BLOOD COUNT 11.2 10^3/uL (4.0-10.0)
--- NOTE | 2020-11-30 20:00 | IPNPDOC ---
Text Note Date of Service The patient was seen on 11/30/20. NOTE Patient seen at the bedside with RN. Edyta endorses mostly back pain, and she can feel her contractions, but she does not feel like they are bad enough for an epidural. Cervix: unchanged at 3/60/-3, posterior. Review of vitals reveals intermittent mildly elevations blood pressures since her admission. She appears to rule in for gestational hypertension at this time. FHR: Cat I with moderate variability, +accels, no decels. Ctx Q3-6 minutes. Pitocin currently at 8mU. She desires IV pain medication. Stadol and phenergan ordered. Will continue to increase pitocin per protocol. Home medications ordered. All patient and questions answered. DO Kaushal VSSunita I+O VSSunita, I+O Laboratory Tests 11/30/20 14:46 Vital Signs Date Time Temp Pulse Resp B/P (MAP) Pulse Ox O2 Delivery O2 Flow Rate FiO2 11/30/20 18:36 87 16 134/78 (96) 11/30/20 18:26 98.1 DENISE LUTZ DO Nov 30, 2020 19:59
[2020-11-30] MEDS: CEPHALEXIN 500 MG CAP PO SCH (20:22)
[2020-11-30] MEDS: BUTORPHANOL 2 MG/ML INJ (J0595) IV PRN (20:23)
[2020-11-30] MEDS: PROMETHAZINE INJ 25 MG/ML VIAL (J2550) IV PRN (20:23)
[2020-12-01] VITALS (38 sets, daily range): BP systolic 126–151; BP diastolic 60–86
[2020-12-01] MEDS: BUTORPHANOL 2 MG/ML INJ (J0595) IV PRN (02:15)
[2020-12-01] MEDS: LR 1,000 ML IV SCH ×2 (02:15→09:07)
[2020-12-01] MEDS: PROMETHAZINE INJ 25 MG/ML VIAL (J2550) IV PRN (02:15)
--- NOTE | 2020-12-01 06:24 | IPNPDOC ---
Text Note Date of Service The patient was seen on 12/01/20. NOTE Patient seen at the bedside with RN. Edyta reports significant pain with contractions. Stadol provided some relief previously but this has worn off. Recent RN exam was 3-4/80/-2. Pitocin currently at 20mU. FHR: Cat I with moderate variability, +accels, no decels. Some breaks in the tracing due to maternal sitting up and rocking back and forth with contraction pain. Patient desires epidural at this time. Will consult with anesthesia. Continue with pitocin. Denise Easley DO VS,Fishbone, I+O VS, Fishbone, I+O Laboratory Tests 11/30/20 14:46 Vital Signs Date Time Temp Pulse Resp B/P (MAP) Pulse Ox O2 Delivery O2 Flow Rate FiO2 12/01/20 02:15 18 11/30/20 23:28 97.4 71 136/75 (95) DENISE EASLEY DO Dec 01, 2020 06:24
[2020-12-01] MEDS ORDERED: FENTANYL 2MCG/ML ROPIVACAINE 0.2% IN 0.9% NACL 100ML IVBAG As Ordered ONE (06:32)
[2020-12-01] MEDS ORDERED: LACTATED RINGER'S 1000 ML IV PRN (08:00)
[2020-12-01] MEDS ORDERED: FENTANYL/ROPIVACAINE/NACL BAG 100 ML EPIDURAL SCH (08:00)
[2020-12-01] MEDS ORDERED: NALOXONE INJ 0.4MG/1ML VIAL (J2310 PER 1MG) IV PRN ×3 (08:00→17:45)
[2020-12-01] MEDS ORDERED: EPIDURAL COMMENT XX SCH (08:00)
[2020-12-01] MEDS ORDERED: REFRIGERATOR IV KEYS XX PRN (08:00)
[2020-12-01] MEDS ORDERED: diphenhydrAMINE 50MG/ML VIAL (J1200) IV PRN ×2 (08:00→17:45)
[2020-12-01] MEDS ORDERED: ePHEDrine SULFATE 25 MG/5 ML(5MG/ML) SYRINGE IV PRN (08:00)
[2020-12-01] MEDS ORDERED: ONDANSETRON 4MG/2ML VIAL IV PRN ×3 (08:00→17:45)
[2020-12-01] MEDS ORDERED: EPIDURAL/PCA KEYS XX PRN (08:00)
[2020-12-01] MEDS ORDERED: OMEPRAZOLE 20 MG CAP PO SCH (09:00)
[2020-12-01] MEDS: CEPHALEXIN 500 MG CAP PO SCH (09:08)
[2020-12-01] MEDS: OMEPRAZOLE 20 MG CAP PO SCH (09:08)
[2020-12-01] MEDS ORDERED: ceFAZolin SOD 2 GM in IV 1 EA IV ONE (15:45)
[2020-12-01] MEDS ORDERED: BUPIVACAINE HCL 0.25% 10ML VIAL SC ONE (15:45)
[2020-12-01] MEDS ORDERED: AZITHROMYCIN INJ 500 MG, VIAL MATE ADAPTER 1 EACH in D5W 250 ML IV ONE (15:45)
[2020-12-01] MEDS ORDERED: ACETAMINOPHEN 650 MG SUPP PR ONE (15:45)
[2020-12-01] MEDS ORDERED: BICITRA 30ML SOLN UDC PO ONE (15:45)
[2020-12-01] MEDS ORDERED: MORPHINE PRES-FREE INJ 10 MG/10 ML VIAL (J2274) As Ordered ONE (15:47)
[2020-12-01] MEDS ORDERED: OXYTOCIN 30 UNITS IN 0.9% NaCl 500ML IV BAG (J2590) As Ordered ONE (15:47)
[2020-12-01] MEDS ORDERED: LIDOCAINE 2% W/EPINEPHRINE 20ML VIAL **PRES FREE As Ordered ONE (15:49)
--- NOTE | 2020-12-01 15:54 | IPNPDOC ---
Text Note Date of Service The patient was seen on 12/01/20. NOTE 1540 pm REVIEWED PROGRESS TO DATE PATIENT IOL FOR OLIGOHYDRAMNIOS, GOT TO FULLY DILATED ON MAXIMUM PITOCIN, NOTED UTERINE ATONY PATIENT PUSHED 2 PLUS HOURS FAILURE TO DESCEND RESTED PATIENT TURNED OFF EPIDURAL RESTARTED PUSHING NO PROGRESS STILL UTERINE ATONY PLAN OF CARE IS PRIMARY CS . REVIEWED RISK HEMORRHAGE INFECTION PERFORATION REOPERATION NEED FOR BLOOD TRANSFUSION, REMOTE HYSTERECTOMY FOR LIFE THREATENING BLEEDING . REMOTE ADMISSION NICU EXPRESSED UNDERSTANDING SIGNED CONSENT VS,Sunita, I+O VS, Sunita, I+O Vital Signs Date Time Temp Pulse Resp B/P (MAP) Pulse Ox O2 Delivery O2 Flow Rate FiO2 12/01/20 07:27 72 136/74 (94) 12/01/20 05:20 97.4 12/01/20 02:45 16 I&O- Last 24 Hours up to 6 AM 12/01/20 06:00 Output Total 1200 ml Balance -1200 ml Keaton Contreras MD Dec 01, 2020 15:53
[2020-12-01] MEDS ORDERED: KETOROLAC 60MG 2ML VIAL As Ordered ONE (16:40)
[2020-12-01] MEDS ORDERED: dexameTHASONE 4 MG/ML 1ML VIAL (J1100 PER 1MG) As Ordered ONE (16:41)
[2020-12-01] MEDS ORDERED: ONDANSETRON 4MG/2ML VIAL As Ordered ONE (16:41)
[2020-12-01] MEDS ORDERED: OXYTOCIN INJ 10 UNITS/ML VIAL (J2590) As Ordered ONE (16:45)
[2020-12-01 16:58] LABS: CORD GAS ABE V -2.8; CORD GAS HCO3 V 23.3 MEQ/L; CORD GAS O2 SAT V 49.2 %; CORD GAS PCO2 V 45.2 mmHg; CORD GAS PH V 7.33 UNITS; CORD GAS PO2 V 21.9 mmHg; CORD GAS SBC V 20.9 MEQ/L; CORD GAS TCO2 V 24.7 MEQ/L
[2020-12-01 16:59] LABS: CORD GAS ABE A -2.5; CORD GAS O2 SAT A < 15.0 %; CORD GAS PH A 7.254 UNITS; CORD GAS PO2 A 10.2 mmHg; CORD GAS TCO2 A 27.8 MEQ/L
[2020-12-01] MEDS ORDERED: MOM 30ML SUSPENSION UDC PO PRN (17:45)
[2020-12-01] MEDS ORDERED: NALBUPHINE HCL 10 MG/ML AMP (J2300) IV PRN (17:45)
[2020-12-01] MEDS ORDERED: ANUSOL HC CREAM 30GM TOP PRN (17:45)
[2020-12-01] MEDS ORDERED: DOCUSATE SODIUM 100MG CAPSULE PO PRN (17:45)
[2020-12-01] MEDS ORDERED: MEASLES,MUMPS,RUBELLA VACCINE INJ (MMR-II) (90707) SC SCH (17:45)
[2020-12-01] MEDS ORDERED: oxyCODONE 5MG TAB PO PRN (17:45)
[2020-12-01] MEDS ORDERED: OXYTOCIN DRIP 30 UNITS in IV 1 EA IV ONE (17:45)
[2020-12-01] MEDS ORDERED: fentaNYL 100 MCG/2 ML INJECTION (J3010) IV PRN (17:45)
[2020-12-01] MEDS ORDERED: RHOGAM 300 MCG (1500 IU) INJ (J2790) IM SCH (17:45)
[2020-12-01] MEDS ORDERED: METOCLOPRAMIDE INJ 10MG/2ML VIAL (J2765 PER 1) IV PRN (17:45)
[2020-12-01] MEDS ORDERED: OXYTOCIN INJ 10 UNITS/ML VIAL (J2590) IV ONE (17:45)
[2020-12-01] MEDS: KETOROLAC 30 MG/ML 1ML VIAL IV SCH (22:44)
[2020-12-02] MEDS: LR 1,000 ML IV SCH ×3 (02:37→16:59)
[2020-12-02 02:45] VITALS: BP 121/70
[2020-12-02] MEDS: KETOROLAC 30 MG/ML 1ML VIAL IV SCH ×2 (05:40→11:25)
[2020-12-02 06:00] VITALS: BP 123/72
[2020-12-02 06:56] LABS: HEMATOCRIT 30.1 % (36.0-47.0); MEAN CORPUSCULAR HEMOGLOBIN 30.4 pg (27.0-33.0); MEAN CORPUSCULAR HGB CONC 33.6 g/dl (32.0-36.5); MEAN CORPUSCULAR VOLUME 90.7 fl (80.0-96.0); PLATELET COUNT, AUTOMATED 300 10^3/uL (150-450); RED BLOOD COUNT 3.32 10^6/uL (4.00-5.40); WHITE BLOOD COUNT 21.9 10^3/uL (4.0-10.0)
[2020-12-02 07:06] LABS: HEMOGLOBIN 10.1 g/dl (12.0-15.5)
--- NOTE | 2020-12-02 07:32 | IPNPDOC ---
Text Note Date of Service The patient was seen on 12/02/20. NOTE Item Value Date Time White Blood Count 21.9 10^3/uL H 12/02/20 0634 Red Blood Count 3.32 10^6/uL L 12/02/20 0634 Hemoglobin 10.1 g/dl L # 12/02/20 0634 Hematocrit 30.1 % L 12/02/20 0634 Mean Corpuscular Volume 90.7 fl 12/02/20 0634 Mean Corpuscular Hemoglobin 30.4 pg 12/02/20 0634 Mean Corpuscular Hemoglobin Concent 33.6 g/dl 12/02/20 0634 Red Cell Distribution Width 13.0 % 12/02/20 0634 Platelet Count 300 10^3/uL 12/02/20 0634 Nucleated Red Blood Cells % (auto) 0.0 % 12/02/20 0634 Red Blood Count 4.04 10^6/uL 11/30/20 1446 White Blood Count 11.2 10^3/uL H 11/30/20 1446 Hemoglobin 12.1 g/dl 11/30/20 1446 Hematocrit 36.1 % 11/30/20 1446 Mean Corpuscular Volume 89.4 fl 11/30/20 1446 Mean Corpuscular Hemoglobin 30.0 pg 11/30/20 1446 Mean Corpuscular Hemoglobin Concent 33.5 g/dl 11/30/20 1446 Platelet Count 353 10^3/uL 11/30/20 1446 Red Cell Distribution Width 13.1 % 11/30/20 1446 Nucleated Red Blood Cells % (auto) 0.0 % 11/30/20 1446 0700 post op day 1. 25 YO HAD PRIMARY CS FOR POP CORD PRESENTATION ATONIC UTERUS. DOING WELL BREAST FEEDING VOIDING PASSING GAS IV D/C NO ISSUES PAIN CONTROLLED . VS,Fishbone, I+O VS, Fishbone, I+O Laboratory Tests 12/02/20 06:34 Vital Signs Date Time Temp Pulse Resp B/P (MAP) Pulse Ox O2 Delivery O2 Flow Rate FiO2 12/02/20 06:00 97.9 71 16 123/72 (89) 97 Room Air I&O- Last 24 Hours up to 6 AM 12/02/20 06:00 Intake Total 6848 ml Output Total 3125 ml Balance 3723 ml Keaton Contreras MD Dec 02, 2020 07:30
[2020-12-02] MEDS: OMEPRAZOLE 20 MG CAP PO SCH (08:54)
[2020-12-02] MEDS: PRENATAL VITAMINS CHEWABLE TABLET PO SCH (08:54)
[2020-12-02] MEDS: PERCOCET 5MG/325MG TAB PO PRN ×2 (09:59→17:56)
[2020-12-02 10:00] VITALS: BP 136/91
[2020-12-02 14:00] VITALS: BP 124/71
[2020-12-02 18:00] VITALS: BP 121/73
[2020-12-02] MEDS: IBUPROFEN 600MG TAB PO PRN (19:33)
[2020-12-02 22:00] VITALS: BP 127/73
[2020-12-02] MEDS: ACETAMINOPHEN 500 MG TAB PO PRN (22:37)
[2020-12-03] MEDS: IBUPROFEN 600MG TAB PO PRN ×3 (01:21→17:52)
[2020-12-03 02:00] VITALS: BP 127/67
[2020-12-03] MEDS: ACETAMINOPHEN 500 MG TAB PO PRN ×3 (05:24→20:09)
[2020-12-03 06:00] VITALS: BP 129/71
[2020-12-03] MEDS: PRENATAL VITAMINS CHEWABLE TABLET PO SCH (09:00)
[2020-12-03] MEDS: OMEPRAZOLE 20 MG CAP PO SCH (09:04)
[2020-12-03 10:00] VITALS: BP 124/65
--- NOTE | 2020-12-03 10:03 | IPNPDOC ---
Progress Note Date of Service: Dec 03, 2020 Day#: 2 Progress Note SUBJECT: Edyta is a 25-year-old 1 p1 POD 2 S/P PLTCD for POP AND Cord presentation- uncomplicated procedure. She has been ambulating, voiding spontaneously without issue and tolerating regular diet. Breast feeding without issue. Reports lochia is like a normal period. OBJECTIVE: VITAL SIGNS: Within normal limits, afebrile. Alert and oriented times three. normal work of breathing. Heart rate: Regular rate and rhyth Abdomen: Fundus firm at U-2. Soft, NTTP. ASSESSMENT: Edyta is a 25-year-old 1 p1 POD 2 S/P PLTCD for POP AND Cord presentation- uncomplicated procedure. doing well, Vitals within normal limits, afebrile, hemodynamically stable with no evidence of infection. PLAN: 1. Discharge to home today. 2. Tylenol and Motrin for pain. 3. Encourage breast feeding and ambulation. 4. Minipill for contraception for now 5. Routine PP visit in 2 and 6 weeks in clinic. 6. Discussed return precautions at length. VS, I&O, 24H, Fishbone Vital Signs/I&O Vital Signs Date Time Temp Pulse Resp B/P (MAP) Pulse Ox O2 Delivery O2 Flow Rate FiO2 12/03/20 06:00 96.9 74 18 129/71 (90) 98 Room Air I&O- Last 24 Hours up to 6 AM 12/03/20 06:00 Intake Total 1570 ml Output Total 350 ml Balance 1220 ml LILA OZUNA MD Dec 03, 2020 10:03
[2020-12-03] MEDS ORDERED: DOK1CAP7 PO (10:07)
[2020-12-03] MEDS ORDERED: ACET-683 PO (10:07)
[2020-12-03 18:00] VITALS: BP 122/62
[2020-12-04] MEDS: IBUPROFEN 600MG TAB PO PRN ×2 (02:28→09:07)
[2020-12-04] MEDS: ACETAMINOPHEN 500 MG TAB PO PRN (05:44)
[2020-12-04 06:00] VITALS: BP 140/90
--- NOTE | 2020-12-04 06:36 | IPNPDOC ---
Progress Note Date of Service: Dec 04, 2020 Day#: 3 Progress Note SUBJECT: Edyta is a 25-year-old 1 p1 POD 3 S/P PLTCD for POP AND Cord presentation- uncomplicated procedure. She has been ambulating, voiding spontaneously without issue and tolerating regular diet. Breast feeding without issue. Reports lochia is like a normal period. OBJECTIVE: VITAL SIGNS: Within normal limits, afebrile. Alert and oriented times three. normal work of breathing. Heart rate: Regular rate and rhyth Abdomen: Fundus firm at U-2. Soft, NTTP. ASSESSMENT: Edyta is a 25-year-old 1 p1 POD 3 S/P PLTCD for POP AND Cord presentation- uncomplicated procedure. doing well, Vitals within normal limits, afebrile, hemodynamically stable with no evidence of infection. PLAN: 1. Discharge to home today. 2. Tylenol and Motrin for pain. 3. Encourage breast feeding and ambulation. 4. Minipill for contraception for now 5. Routine PP visit in 2 and 6 weeks in clinic. 6. Discussed return precautions at length. VS, I&O, 24H, Fishbone Vital Signs/I&O Vital Signs Date Time Temp Pulse Resp B/P (MAP) Pulse Ox O2 Delivery O2 Flow Rate FiO2 12/03/20 18:00 97.8 65 18 122/62 (82) 98 12/03/20 06:00 Room Air LILA OZUNA MD Dec 04, 2020 05:57
[2020-12-04] MEDS ORDERED: IBUP-1022 PO (06:37)
[2020-12-04] MEDS: OMEPRAZOLE 20 MG CAP PO SCH ×2 (09:00→09:07)
[2020-12-04] MEDS: PRENATAL VITAMINS CHEWABLE TABLET PO SCH (09:07)
--- NOTE | 2020-12-04 16:36 | RO ---
OPERATIVE NOTE DATE OF OPERATION: 12/01/2020 This lady is a 25-year-old 1 who was admitted for induction of labor because of oligohydramnios at 38 and 2 weeks gestation. She had primary section for POP, cord presentation, atonic uterus. PREOPERATIVE DIAGNOSIS: Atonic uterus, persistent occiput posterior, failure to descend and progress. POSTOPERATIVE DIAGNOSIS: Atonic uterus, persistent occiput posterior, failure to descend and progress. OPERATION PROPOSED: Primary section. PROCEDURE PERFORMED: Primary section. SURGEON: Keaton Contreras MD CONCRETE INSPECTOR: Dr. Eligio Nicolas for extraction, retraction and visualization without which the procedure could not be completed. ANESTHESIA: Initially epidural followed by spinal followed by local. ESTIMATED BLOOD LOSS: 300 mL. DESCRIPTION OF PROCEDURE: After adequate time out prepped and draped in supine position, Cardenas catheter in bladder draining clear urine, Acetaminophen suppository 1300 mg per rectum, sequentials in place, antibiotics preoperatively at appropriate interval. Pfannenstiel incision was made 2 fingers breadth above the symphysis pubis, passing through abdominal layers securing hemostasis. Opening the peritoneal cavity bladder reflected well down anteriorly. Low transverse incision into the uterus, clear lochia, we delivered a livebirth female infant in the POP position, initially with cord presentation. Significantly deflexed, infant weight female 7 pounds 4 ounces, 3280 gm, Apgars of 8 and 9 at one an five minutes respectively. Arterial pH 7.25, base excess -2.5, venous pH 7.33, base excess -2.8. Placenta was manually removed, three vessel cord, membranes and tissues intact. Uterus contracted well down on Pitocin. The lower segment was oversewn in usual fashion in two layers and reperitonealization was performed. With instrument and pad counts correct, both ovaries and tubes appeared to be normal, the Mobius which had been placed prior to the incision into the uterus was removed. Again, demonstrating the uterus was well contracted under Pitocin. The abdomen was closed with running stitch for peritoneum, same for the fascia, interrupted for subcu and Dexon to the skin, Marcaine 0.25% 10 mL subcuticularly to the skin. 1000 mg of Cytotec were placed per rectum to ensure uterine contractility. The patient was taken back to recovery in good condition.
== END 2020-12-04 11:35 | disposition home or self-care (01) | DRG 773 ==
LOC: M LDI 13:50 → M OBS 12-01 19:30
PROVIDERS: ADMIT Registered Nurse Maternal Newborn; ATTEND Registered Nurse Maternal Newborn
PROC: 3E033VJ Introduction of Other Hormone into Peripheral Vein, Percutaneous Approach (ICD-10-PCS; 2020-11-30)
PROC: 10D00Z1 Extraction of Products of Conception, Low, Open Approach (ICD-10-PCS; principal; 2020-12-01 16:44)
DX: O41.03X0 Oligohydramnios, third trimester, not applicable or unspecified (principal); Z37.0 Single live birth; Z3A.38 38 weeks gestation of pregnancy; Z79.899 Other long term (current) drug therapy; K21.9 Gastro-esophageal reflux disease without esophagitis; O99.62 Diseases of the digestive system complicating childbirth; O62.0 Primary inadequate contractions; O64.0XX0 Obstructed labor due to incomplete rotation of fetal head, not applicable or unspecified; O62.2 Other uterine inertia; F90.9 Attention-deficit hyperactivity disorder, unspecified type; O99.344 Other mental disorders complicating childbirth; F41.9 Anxiety disorder, unspecified